=== PATIENT | female | born 1990 | race Caucasian/White ===

== ENCOUNTER 2018-04-03 06:06 | Inpatient (IN) | payer OTHER ==
[~2018-04-03] VITALS: Ht 167.6 cm; Wt 95.9 kg
[~2018-04-03 06:06] MED LIST: IBUP800 PO; RANI150 PO; Verotin-Gr Cap1 EACH PO
[2018-04-03] MEDS ORDERED: ACID REDUCER 1150 MG PO (06:23)
[2018-04-03 07:23] LABS: BASOPHILS ABSOLUTE AUTO 0.04 K/mm3 (0.00-0.23); BASOPHILS PERCENT AUTO 0 % (0-2); EOSINOPHILS ABSOLUTE AUTO 0.26 K/mm3 (0.00-0.68); EOSINOPHILS PERCENT AUTO 2 % (0-6); Hematocrit 39.5 % (33.0-51.0); Hemoglobin 12.7 g/dL (11.5-16.0); IMMATURE GRAN ABSOLUTE AUTO 0.12 K/mm3 (0.00-0.10); IMMATURE GRAN PERCENT AUTO 1 % (0-1); LYMPHOCYTES ABSOLUTE AUTO 2.41 K/mm3 (0.84-5.20); LYMPHOCYTES PERCENT AUTO 17 % (21-46); MONOCYTES PERCENT AUTO 6 % (4-13); Mean Corpuscular HGB 26.3 pg (26.0-34.0); Mean Corpuscular HGB Conc 32.2 g/dL (31.5-36.5); Mean Corpuscular Volume 82 fL (80-100); Mean Platelet Volume 12.9 fL (9.1-12.4); NEUTROPHILS ABSOLUTE AUTO 10.63 K/mm3 (1.96-9.15); NEUTROPHILS PERCENT AUTO 74 % (41-73); Platelet Count 198 K/mm3 (150-400); RDW Coefficient Variation 13.3 % (11.7-14.2); RDW Standard Deviation 39.2 fL (35.1-46.3); Red Blood Cell Count 4.83 M/mm3 (3.80-5.20); White Blood Cell Count 14.36 K/mm3 (4.00-11.30)
[2018-04-03 07:51] LABS: Alanine Aminotransfer (ALT/SGP 23 U/L (12-78); Albumin, Blood 2.5 g/dL (3.4-5.0); Albumin/Globulin Ratio 0.7 (0.8-1.8); Alk Phos 159 U/L (50-136); Anion Gap 10 mmol/L (6-16); Aspartate Aminotrans (AST/SGOT 18 U/L (12-37); Bilirubin, Total 0.3 mg/dL (0.1-1.0); Blood Urea Nitrogen 11 mg/dL (8-24); Bun/Creatinine Ratio 15.5 (12.0-20.0); CO2, Blood 19 mmol/L (21-32); Calcium, Blood 8.2 mg/dL (8.5-10.1); Chloride, Blood 111 mmol/L (98-108); Creatinine, Blood 0.71 mg/dL (0.40-1.00); Globulin, Blood 3.5 g/dL (2.2-4.0); Glomerular Filtration Rate >60 (60-); Glucose, Blood 74 mg/dL (70-99); Potassium, Blood 4.1 mmol/L (3.5-5.5); Sodium, Blood 140 mmol/L (136-145)
[2018-04-05 05:45] LABS: BASOPHILS ABSOLUTE AUTO 0.05 K/mm3 (0.00-0.23); BASOPHILS PERCENT AUTO 0 % (0-2); EOSINOPHILS PERCENT AUTO 1 % (0-6); Hematocrit 38.9 % (33.0-51.0); Hemoglobin 12.6 g/dL (11.5-16.0); IMMATURE GRAN ABSOLUTE AUTO 0.12 K/mm3 (0.00-0.10); IMMATURE GRAN PERCENT AUTO 1 % (0-1); LYMPHOCYTES PERCENT AUTO 18 % (21-46); MONOCYTES PERCENT AUTO 7 % (4-13); Mean Corpuscular HGB 25.8 pg (26.0-34.0); Mean Corpuscular HGB Conc 32.4 g/dL (31.5-36.5); Mean Corpuscular Volume 80 fL (80-100); Mean Platelet Volume 12.4 fL (9.1-12.4); NEUTROPHILS PERCENT AUTO 72 % (41-73); Platelet Count 186 K/mm3 (150-400); RDW Coefficient Variation 13.4 % (11.7-14.2); RDW Standard Deviation 37.9 fL (35.1-46.3); Red Blood Cell Count 4.88 M/mm3 (3.80-5.20); White Blood Cell Count 14.97 K/mm3 (4.00-11.30)
[2018-04-06] MEDS ORDERED: IBUP800 PO (14:19)
== END 2018-04-06 20:20 | disposition home or self-care (01) | DRG 775 ==
LOC: BC 06:06
PROVIDERS: Nurse Practitioner Obstetrics & Gynecology
PROC: 10E0XZZ Delivery of Products of Conception, External Approach (ICD-10-PCS; principal; 2018-04-04)
PROC: 10H07YZ Insertion of Other Device into Products of Conception, Via Natural or Artificial Opening (ICD-10-PCS; 2018-04-04)
PROC: 10907ZC Drainage of Amniotic Fluid, Therapeutic from Products of Conception, Via Natural or Artificial Opening (ICD-10-PCS; 2018-04-04)
PROC: 3E0R3BZ Introduction of Anesthetic Agent into Spinal Canal, Percutaneous Approach (ICD-10-PCS; 2018-04-04)
PROC: 3E0P7VZ Introduction of Hormone into Female Reproductive, Via Natural or Artificial Opening (ICD-10-PCS; 2018-04-04)
DX: O14.04 Mild to moderate pre-eclampsia, complicating childbirth (principal); O99.824 Streptococcus B carrier state complicating childbirth; Z3A.37 37 weeks gestation of pregnancy; Z37.0 Single live birth; Z88.8 Allergy status to other drugs, medicaments and biological substances
CPT/HCPCS: 36415; 80053; 85025; 85460; 96372; J0290; J0610; J1885; J2210; J2405; J2590; J2790; J3010; J3475; J7120; Q0163

== ENCOUNTER 2019-01-23 12:53 | Day surgery (SDC) | payer OTHER ==
[~2019-01-23] VITALS: Ht 167.6 cm; Wt 86.6 kg
[~2019-01-23 12:53] MED LIST changes: +ACID REDUCER 1150 MG PO
--- NOTE | 2019-01-23 15:46 | NUR ---
01/23/19 1546 Herminia Franklin PATIENT TO PACU ON [facility] BO[facility], REPORT RECEIVED FROM LAURIE COULTER AND DR MOORE. PATIENT ROUSES TO VERBAL STIMULI. ANSWERS YES TO PAIN 4/10 AND FEELING NAUSEOUS. ZOFRAN GIVEN PER MD ORDER AND FENTANYL GIVEN PER MD ORDER. WILL CONTINUE TO MONITOR AND TREAT PER ORDERS
--- NOTE | 2019-01-23 16:24 | NUR ---
01/23/19 1624 Herminia Franklin LATE ENTRY--PATIENT ABLE TO TRANSFER TO CHAIR WITH MINIMAL HELP. DID FEEL INCREASE IN NAUSEA BUT PAIN REMAINED 3/10 AND TOLERABLE. PATIENT GIVEN WARM BLANKETS FOR ABDOMEN TO USE FOR SPLINTING AND THIS WAS EXPLAINED TO PATIENT. BROUGHT BACK PER PATIENT REQUEST. I ENCOURAGE PATIENT TO DRINK SIPS SLOWLY OF WATER, JUICE OR ALEJANDRO MIST. PATIENT VERBALIZES SHE UNDERSTANDS ALSO GIVEN CRACKERS TO START WHEN SHE FEELS READY. AT CHAIRSIDE AND ALL QUESTIONS ANSWERED
== END 2019-01-23 17:07 | disposition home or self-care (01) ==
LOC: ORSCSDS 12:53
PROVIDERS: Obstetrics & Gynecology
PROC: 0UT74ZZ Resection of Bilateral Fallopian Tubes, Percutaneous Endoscopic Approach (ICD-10-PCS; principal; 2019-01-23 14:05)
DX: Z30.2 Encounter for sterilization (principal)
CPT/HCPCS: 88302; J0690; J1100; J1885; J2250; J2405; J2704; J2710; J2765; J3010; J7120

== ENCOUNTER 2019-10-26 05:19 | Emergency (ER) | payer OTHER ==
[~2019-10-26] VITALS: Ht 167.6 cm; Wt 83.9 kg
[2019-10-26] MEDS ORDERED: Esgic Tablet1 EACH PO (09:07)
[2019-10-26] MEDS ORDERED: PROM25 PO (09:07)
== END 2019-10-26 09:23 | disposition home or self-care (01) ==
LOC: ER 05:19
DX: R51 Headache (principal); Z87.891 Personal history of nicotine dependence
CPT/HCPCS: 36415; 96361; 96374; 96375; 99283-25; J1200; J1885; J2550; J7030